=== PATIENT | male | born 1940 | race Caucasian/White ===

== ENCOUNTER 2016-12-04 12:57 | Outpatient (CLI) | payer MEDICARE ==
[2016-12-04 13:25] LABS: #Basophils 0.1 thou/uL (0.0-0.2); #Eosinphils 0.1 thou/uL (0.0-0.7); #Lymphocytes 1.3 thou/uL (1.20-3.40); #Monocytes 0.4 thou/uL (0.11-0.59); #Neutrophils 5.3 thou/uL (1.40-6.50); %Basophils 0.9 % (0.0-1.0); %Eosinophils 1.2 % (0.0-10.0); %Lymphocytes 17.8 % (21.0-51.0); %Monocytes 5.4 % (0.0-10.0); %Neutrophils 74.7 % (42.0-75.0); Hemoglobin 14.7 g/dL (14.0-18.0); Mean Corpuscular HGB CONC 33.5 g/dL (32.0-36.0); Mean Corpuscular Hemoglobin 32.9 pg (27.0-31.0); Mean Corpuscular Volume 98.2 fl (80.0-94.0); Mean Platelet Volume 8.1 fL (7.4-10.4); Platelet Count 201 thou/uL (130-400); RBC Distribution Width 12.2 % (11.5-14.5); Red Blood Cell (RBC) Count 4.48 mill/uL (4.70-6.10); White Blood Cell (WBC) Count 7.1 thou/uL (4.8-10.8)
[2016-12-04 13:30] LABS: INR-International Normal Ratio 1.5; Prothrombin Time 18.1 SEC (12.0-14.7)
[2016-12-04 13:35] LABS: Hemoglobin A1c 5.1 % (4.0-6.0)
[2016-12-04 13:37] LABS: ALT (SGPT) 10 U/L (0-55); AST (SGOT) 12 U/L (5-34); Albumin 4.3 g/dL (3.4-4.8); Alkaline Phosphatase 82 U/L (40-150); Anion Gap 15 mmol/L (10-20); BUN (Urea Nitrogen) 17 mg/dL (8.4-25.7); Calc. Creatinine Clearance 0 mL/min (70-130); Calcium 9.6 mg/dL (7.8-10.44); Carbon Dioxide 29 mmol/L (23-31); Cardiac Risk 3.9 (Less than 4.5); Chloride 101 mmol/L (98-107); Cholesterol 208 mg/dL (< 200 Desired); Estimated GFR-MDRD 71; Globulin 2.5 g/dL (2.4-3.5); Glucose 97 mg/dL (83-110); HDL Cholesterol 53 mg/dL (>60 Neg Risk); LDL Cholesterol, Calculated 125 mg/dL; Potassium 4.7 mmol/L (3.5-5.1); Protein, Total 6.8 g/dL (5.8-8.1); Sodium 140 mmol/L (136-145); Triglycerides 148 mg/dL (Less than 150)
== END 2016-12-04 12:58 | disposition home or self-care (01) ==
LOC: MADLABBHPM 12:57
PROVIDERS: ATTEND Family Medicine
DX: I10 Essential (primary) hypertension (principal); E78.5 Hyperlipidemia, unspecified
CPT/HCPCS: 36415; 80053; 80061; 83036; 84443; 85025; 85610

== ENCOUNTER 2017-01-16 14:29 | Outpatient (CLI) | payer MEDICARE ==
[2017-01-16 15:00] LABS: INR-International Normal Ratio 2.3; Prothrombin Time 25.1 SEC (12.0-14.7)
== END 2017-01-16 14:30 | disposition home or self-care (01) ==
LOC: MADLABBHPM 14:29
PROVIDERS: ATTEND Family Medicine
DX: Z51.81 Encounter for therapeutic drug level monitoring (principal); Z79.01 Long term (current) use of anticoagulants
CPT/HCPCS: 36415; 85610

== ENCOUNTER 2017-02-13 11:25 | Outpatient (CLI) | payer MEDICARE ==
[2017-02-13 11:49] LABS: INR-International Normal Ratio 2.7; Prothrombin Time 28.2 SEC (12.0-14.7)
== END 2017-02-13 11:26 | disposition home or self-care (01) ==
LOC: MADLAB 11:25
PROVIDERS: ATTEND Family Medicine
DX: Z51.81 Encounter for therapeutic drug level monitoring (principal); Z79.01 Long term (current) use of anticoagulants
CPT/HCPCS: 36415; 85610

== ENCOUNTER 2017-03-18 12:40 | Outpatient (CLI) | payer MEDICARE ==
[2017-03-18 13:00] LABS: INR-International Normal Ratio 2.5
== END 2017-03-18 12:41 | disposition home or self-care (01) ==
LOC: MADLAB 12:40
PROVIDERS: ATTEND Family Medicine
DX: Z51.81 Encounter for therapeutic drug level monitoring (principal); Z79.01 Long term (current) use of anticoagulants
CPT/HCPCS: 36415; 85610

== ENCOUNTER 2017-04-15 10:54 | Outpatient (CLI) | payer MEDICARE ==
[2017-04-15 11:32] LABS: INR-International Normal Ratio 2.4; Prothrombin Time 26.3 SEC (12.0-14.7)
== END 2017-04-15 10:55 | disposition home or self-care (01) ==
LOC: MADLABBHPM 10:54
PROVIDERS: ATTEND Family Medicine
DX: Z51.81 Encounter for therapeutic drug level monitoring (principal); Z79.01 Long term (current) use of anticoagulants
CPT/HCPCS: 36415; 85610

== ENCOUNTER 2017-05-16 11:20 | Outpatient (CLI) | payer MEDICARE ==
[2017-05-16 12:27] LABS: INR-International Normal Ratio 3.3; Prothrombin Time 32.9 SEC (12.0-14.7)
== END 2017-05-16 11:21 | disposition home or self-care (01) ==
LOC: MADLABBHPM 11:20
PROVIDERS: ATTEND Family Medicine
DX: Z51.81 Encounter for therapeutic drug level monitoring (principal); Z79.01 Long term (current) use of anticoagulants
CPT/HCPCS: 36415; 85610

== ENCOUNTER 2017-05-23 11:02 | Outpatient (CLI) | payer MEDICARE ==
[2017-05-23 11:31] LABS: INR-International Normal Ratio 1.5; Prothrombin Time 18.1 SEC (12.0-14.7)
== END 2017-05-23 11:03 | disposition home or self-care (01) ==
LOC: MADLABBHPM 11:02
PROVIDERS: ATTEND Family Medicine
DX: Z51.81 Encounter for therapeutic drug level monitoring (principal); Z79.01 Long term (current) use of anticoagulants
CPT/HCPCS: 36415; 85610

== ENCOUNTER 2017-06-17 09:01 | Outpatient (CLI) | payer MEDICARE ==
[2017-06-17 09:48] LABS: INR-International Normal Ratio 1.9; Prothrombin Time 21.5 SEC (12.0-14.7)
== END 2017-06-17 09:02 | disposition home or self-care (01) ==
LOC: MADLABBHPM 09:01
PROVIDERS: ATTEND Family Medicine
DX: Z51.81 Encounter for therapeutic drug level monitoring (principal); Z79.01 Long term (current) use of anticoagulants
CPT/HCPCS: 36415; 85610

== ENCOUNTER 2017-07-17 13:31 | Outpatient (CLI) | payer MEDICARE ==
[2017-07-17 14:22] LABS: Prothrombin Time 32.6 SEC (12.0-14.7)
== END 2017-07-17 13:32 | disposition home or self-care (01) ==
LOC: MADLABBHPM 13:31
PROVIDERS: ATTEND Family Medicine
DX: Z51.81 Encounter for therapeutic drug level monitoring (principal); Z79.01 Long term (current) use of anticoagulants
CPT/HCPCS: 36415; 85610

== ENCOUNTER 2017-08-15 11:33 | Outpatient (CLI) | payer MEDICARE ==
[2017-08-15 12:51] LABS: Prothrombin Time 32.3 SEC (12.0-14.7)
== END 2017-08-15 11:34 | disposition home or self-care (01) ==
LOC: MADLAB 11:33
PROVIDERS: ATTEND Family Medicine
DX: Z51.81 Encounter for therapeutic drug level monitoring (principal); Z79.01 Long term (current) use of anticoagulants
CPT/HCPCS: 36415; 85610

== ENCOUNTER 2017-10-16 11:45 | Outpatient (CLI) | payer MEDICARE ==
[2017-10-16 19:09] LABS: INR-International Normal Ratio 2.4
== END 2017-10-16 11:46 | disposition home or self-care (01) ==
LOC: MADLABBHPM 11:45
PROVIDERS: ATTEND Surgery Plastic and Reconstructive Surgery
DX: Z51.81 Encounter for therapeutic drug level monitoring (principal); Z79.01 Long term (current) use of anticoagulants
CPT/HCPCS: 85610

== ENCOUNTER 2017-11-14 15:00 | Outpatient (CLI) | payer MEDICARE ==
--- NOTE | 2017-11-14 16:34 | RAD ---
TWO VIEW CHEST: 11/14/17 HISTORY: COPD and bronchitis. COMPARISON: Comparison made to exam of 04/01/14. No evidence of infiltrate. The left heart border is somewhat obscured due to cardiac fat pad but this is a stable finding. Vascular markings are normal. Mild hyperexpansion flattened diaphragms again no mario consistent with COPD. There is some stranding in peripheral left lung which is stable and chronic . IMPRESSION: changes as described above which appears stable. No acute interval change. POS: [facility]
== END 2017-11-14 15:01 | disposition home or self-care (01) ==
LOC: MADRAD 15:00
PROVIDERS: ATTEND Family Medicine
DX: J20.9 Acute bronchitis, unspecified (principal); J44.9 Chronic obstructive pulmonary disease, unspecified
CPT/HCPCS: 71020

== ENCOUNTER 2017-11-15 13:39 | Outpatient (CLI) | payer MEDICARE ==
[2017-11-15 14:15] LABS: INR-International Normal Ratio 2.2; Prothrombin Time 25.6 SEC (12.0-14.7)
== END 2017-11-15 13:40 | disposition home or self-care (01) ==
LOC: MADLABBHPM 13:39
PROVIDERS: ATTEND Family Medicine
DX: Z51.81 Encounter for therapeutic drug level monitoring (principal); Z79.01 Long term (current) use of anticoagulants
CPT/HCPCS: 36415; 85610

== ENCOUNTER 2017-12-23 12:42 | Outpatient (CLI) | payer MEDICARE ==
[2017-12-23 13:16] LABS: INR-International Normal Ratio 2.8; Prothrombin Time 30.9 SEC (12.0-14.7)
== END 2017-12-23 12:43 | disposition home or self-care (01) ==
LOC: MADLABBHPM 12:42
PROVIDERS: ATTEND Family Medicine
DX: Z51.81 Encounter for therapeutic drug level monitoring (principal); Z79.01 Long term (current) use of anticoagulants
CPT/HCPCS: 36415; 85610

== ENCOUNTER 2018-01-17 13:41 | Outpatient (CLI) | payer MEDICARE ==
[2018-01-17 14:01] LABS: INR-International Normal Ratio 2.4; Prothrombin Time 27.1 SEC (12.0-14.7)
== END 2018-01-17 13:42 | disposition home or self-care (01) ==
LOC: MADLABBHPM 13:41
PROVIDERS: ATTEND Family Medicine
DX: Z51.81 Encounter for therapeutic drug level monitoring (principal); Z79.01 Long term (current) use of anticoagulants
CPT/HCPCS: 36415; 85610

== ENCOUNTER 2018-02-19 13:07 | Outpatient (CLI) | payer MEDICARE ==
[2018-02-19 13:40] LABS: INR-International Normal Ratio 2.7; Prothrombin Time 30.1 SEC (12.0-14.7)
== END 2018-02-19 13:08 | disposition home or self-care (01) ==
LOC: MADLABBHPM 13:07
PROVIDERS: ATTEND Family Medicine
DX: Z51.81 Encounter for therapeutic drug level monitoring (principal); Z79.01 Long term (current) use of anticoagulants
CPT/HCPCS: 36415; 85610

== ENCOUNTER 2018-03-18 13:50 | Outpatient (CLI) | payer MEDICARE ==
[2018-03-18 14:32] LABS: INR-International Normal Ratio 2.3; Prothrombin Time 26.2 SEC (12.0-14.7)
== END 2018-03-18 13:51 | disposition home or self-care (01) ==
LOC: MADLABBHPM 13:50
PROVIDERS: ATTEND Family Medicine
DX: Z51.81 Encounter for therapeutic drug level monitoring (principal); Z79.01 Long term (current) use of anticoagulants
CPT/HCPCS: 36415; 85610

== ENCOUNTER 2018-04-17 12:33 | Outpatient (CLI) | payer MEDICARE ==
[2018-04-17 13:03] LABS: INR-International Normal Ratio 2.4; Prothrombin Time 26.7 SEC (12.0-14.7)
== END 2018-04-17 12:34 | disposition home or self-care (01) ==
LOC: MADLABBHPM 12:33
PROVIDERS: ATTEND Family Medicine
DX: Z51.81 Encounter for therapeutic drug level monitoring (principal); Z79.01 Long term (current) use of anticoagulants
CPT/HCPCS: 36415; 85610

== ENCOUNTER 2018-05-01 14:55 | Outpatient (CLI) | payer MEDICARE ==
--- NOTE | 2018-05-01 15:34 | RAD ---
PA AND LATERAL OF THE CHEST 05/01/18 INDICATION: History of COPD exacerbation COMPARISON: Prior exam dated 11/14/17. FINDINGS: The emphysematous change is similar. Mild cardiomegaly is stable. No air space consolidation, pleural effusion or pneumothorax is evident. No acute osseous abnormality is evident. IMPRESSION: No acute cardiopulmonary abnormality. Stable chronic lung changes when compared to prior dated . POS: [facility]
[2018-05-01 15:46] LABS: Bilirubin Moderate (Negative); Blood, Urine Moderate (Negative); Glucose, Urine (Dipstick) Negative (Negative); Leukocyte Trace (Negative); Nitrite Positive (Negative); Protein, Urine (Dipstick) 100 mg/dL (Neg-Trace); pH, Urine 5.5 (5.0-9.0)
[2018-05-01 16:35] LABS: Bacteria/HPF 3+ HPF (None Seen); Clarity Slightly Cloudy (Clear); Specific Gravity, Urine 1.027 (1.002-1.036)
== END 2018-05-01 14:56 | disposition home or self-care (01) ==
LOC: MADLABBHPM 14:55
PROVIDERS: ATTEND Family Medicine
DX: J44.1 Chronic obstructive pulmonary disease with (acute) exacerbation (principal); R35.0 Frequency of micturition
CPT/HCPCS: 36415; 71046; 81001; 87077; 87086

== ENCOUNTER 2018-05-23 13:16 | Outpatient (CLI) | payer MEDICARE ==
[2018-05-23 13:35] LABS: INR-International Normal Ratio 2.8; Prothrombin Time 30.5 SEC (12.0-14.7)
== END 2018-05-23 13:17 | disposition home or self-care (01) ==
LOC: MADLABBHPM 13:16
PROVIDERS: ATTEND Family Medicine
DX: Z51.81 Encounter for therapeutic drug level monitoring (principal); Z79.01 Long term (current) use of anticoagulants
CPT/HCPCS: 36415; 85610

== ENCOUNTER 2018-07-04 12:05 | Outpatient (CLI) | payer MEDICARE ==
[2018-07-04 12:57] LABS: Prothrombin Time 31.3 SEC (12.0-14.7)
== END 2018-07-04 12:06 | disposition home or self-care (01) ==
LOC: MADLABBHPM 12:05
PROVIDERS: ATTEND Family Medicine
DX: Z51.81 Encounter for therapeutic drug level monitoring (principal); Z79.01 Long term (current) use of anticoagulants
CPT/HCPCS: 36415; 85610

== ENCOUNTER 2018-07-11 10:30 | Outpatient (CLI) | payer MEDICARE ==
[2018-07-11 11:12] LABS: INR-International Normal Ratio 2.9; Prothrombin Time 30.4 SEC (12.0-14.7)
== END 2018-07-11 10:31 | disposition home or self-care (01) ==
LOC: MADLABBHPM 10:30
PROVIDERS: ATTEND Family Medicine
DX: Z51.81 Encounter for therapeutic drug level monitoring (principal); Z79.01 Long term (current) use of anticoagulants
CPT/HCPCS: 36415; 85610

== ENCOUNTER 2018-08-13 13:41 | Outpatient (CLI) | payer MEDICARE ==
[2018-08-13 13:54] LABS: INR-International Normal Ratio 2.5; Prothrombin Time 26.9 SEC (12.0-14.7)
== END 2018-08-13 13:42 | disposition home or self-care (01) ==
LOC: MADLAB 13:41
PROVIDERS: ATTEND Family Medicine
DX: Z51.81 Encounter for therapeutic drug level monitoring (principal); Z79.01 Long term (current) use of anticoagulants
CPT/HCPCS: 36415; 85610

== ENCOUNTER 2018-09-18 15:46 | Outpatient (CLI) | payer MEDICARE ==
[2018-09-18 16:11] LABS: Prothrombin Time 22.9 SEC (12.0-14.7)
== END 2018-09-18 15:47 | disposition home or self-care (01) ==
LOC: MADLABBHPM 15:46
PROVIDERS: ATTEND Family Medicine
DX: Z12.31 Encounter for screening mammogram for malignant neoplasm of breast (principal); Z79.01 Long term (current) use of anticoagulants
CPT/HCPCS: 85610

== ENCOUNTER 2018-10-17 14:13 | Outpatient (CLI) | payer MEDICARE ==
[2018-10-17 15:00] LABS: Prothrombin Time 22.9 SEC (12.0-14.7)
== END 2018-10-17 14:14 | disposition home or self-care (01) ==
LOC: MADLABBHPM 14:13
PROVIDERS: ATTEND Family Medicine
DX: Z51.81 Encounter for therapeutic drug level monitoring (principal); Z79.01 Long term (current) use of anticoagulants
CPT/HCPCS: 36415; 85610